=== PATIENT | male | born 2000 | race Caucasian/White ===

== ENCOUNTER 2018-05-15 23:35 | Emergency (ER) | payer BC ==
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
[2018-05-16] MEDS ORDERED: Silver Sulfadiazine 1% Crm 50 GM Tube TOP ONE (01:21)
[2018-05-16] MEDS: Silver Sulfadiazine 1% Crm 50 GM Tube TOP ONE ×2 (01:22→01:24)
--- NOTE | 2018-05-16 10:03 | CR ---
Right hand: Four views of the right hand were obtained. Comparison: No prior hand exam is available. No fracture, dislocation or other bony abnormality is seen. Impression: 1. No abnormality is identified on right hand exam. Diagnostic code #1
== END 2018-05-16 02:00 | disposition home or self-care (01) ==
LOC: JD.ED 23:35
DX: T23.151A Burn of first degree of right palm, initial encounter (principal); F17.210 Nicotine dependence, cigarettes, uncomplicated; W39.XXXA Discharge of firework, initial encounter
CPT/HCPCS: 73130-26-RT; 73130-RT; 99283; A9270-GY